=== PATIENT | male | born 1985 | race Caucasian/White ===

== ENCOUNTER 2022-01-05 11:11 | Inpatient (IN) | payer MEDICARE, OTHER ==
[~2022-01-05] VITALS: Ht 193 cm; Wt 152.0 kg
[2022-01-05 12:11] LABS: BASOPHILS ABSOLUTE AUTO 0.06 K/mm3 (0.00-0.23); BASOPHILS PERCENT AUTO 1 % (0-2); EOSINOPHILS ABSOLUTE AUTO 0.18 K/mm3 (0.00-0.68); EOSINOPHILS PERCENT AUTO 2 % (0-6); Hemoglobin 15.3 g/dL (13.5-17.5); IMMATURE GRAN ABSOLUTE AUTO 0.04 K/mm3 (0.00-0.10); IMMATURE GRAN PERCENT AUTO 0 % (0-1); LYMPHOCYTES ABSOLUTE AUTO 3.08 K/mm3 (0.84-5.20); LYMPHOCYTES PERCENT AUTO 26 % (21-46); MONOCYTES PERCENT AUTO 5 % (4-13); Mean Corpuscular HGB Conc 31.9 g/dL (31.5-36.5); Mean Corpuscular Volume 82 fL (80-100); Mean Platelet Volume 8.7 fL (9.1-12.4); NEUTROPHILS ABSOLUTE AUTO 7.82 K/mm3 (1.96-9.15); NEUTROPHILS PERCENT AUTO 67 % (41-73); Platelet Count 283 K/mm3 (150-400); RDW Coefficient Variation 13.8 % (11.7-14.2); RDW Standard Deviation 40.7 fL (35.1-46.3); Red Blood Cell Count 5.89 M/mm3 (4.30-5.90); White Blood Cell Count 11.78 K/mm3 (4.00-11.30)
[2022-01-05 12:12] LABS: Influenza A, PCR NEGATIVE (NEGATIVE); Influenza B, PCR NEGATIVE (NEGATIVE); Resp Syncytial Virus, PCR NEGATIVE (NEGATIVE); SARS-Cov-2 (COVID-19) PCR, MMC NEGATIVE (NEGATIVE)
[2022-01-05 12:38] LABS: Albumin, Blood 3.6 g/dL (3.4-5.0); Albumin/Globulin Ratio 0.9 (0.8-1.8); Bilirubin, Total 0.9 mg/dL (0.1-1.0); Bun/Creatinine Ratio 21.1 (12.0-20.0); Calcium, Blood 9.6 mg/dL (8.5-10.1); Creatinine, Blood 0.62 mg/dL (0.60-1.20); Globulin, Blood 4.2 g/dL (2.2-4.0); Potassium, Blood 4.3 mmol/L (3.5-5.5); Total Protein, Blood 7.8 g/dL (6.4-8.2)
[2022-01-05] MEDS ORDERED: METFORMIN HCL500 M2 PO (13:05)
[2022-01-05] MEDS ORDERED: HYDCHL25 PO (13:05)
[2022-01-05] MEDS ORDERED: ROSUVASTATIN CAL5 MG PO (13:05)
[2022-01-05] MEDS ORDERED: METOPROLOL TART25 MG (13:05)
--- NOTE | 2022-01-05 18:11 | NUR ---
SHIFT SUMMARY PT HAS BEEN RESTING IN ROOM SINCE ARRIVING. PT HAS BEEN PLEASANT AND COOPERATIVE. PT IS ALERT AND ORIENTED X4, THEY HAVE USED THE CALL LIGHT APPROPRIATELY FOR ASSISTANCE. PT HAS ASKED QUESTIONS ABOUT CURRENT ILLNESS AND IS RECEPTIVE TO EDUCATION. PT DENIES C/O PAIN OR DISCOMFORT, DENIES PRESENCE OF CHEST PAIN/PRESSURE. 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 PT STATED AN EASING OF SHORTNESS OF BREATH ATER DIURETICS WERE ADMINISTERED.
[2022-01-06 04:37] LABS: BASOPHILS ABSOLUTE AUTO 0.07 K/mm3 (0.00-0.23); BASOPHILS PERCENT AUTO 1 % (0-2); EOSINOPHILS ABSOLUTE AUTO 0.27 K/mm3 (0.00-0.68); EOSINOPHILS PERCENT AUTO 3 % (0-6); Hematocrit 44.1 % (37.0-53.0); Hemoglobin 14.3 g/dL (13.5-17.5); IMMATURE GRAN ABSOLUTE AUTO 0.03 K/mm3 (0.00-0.10); IMMATURE GRAN PERCENT AUTO 0 % (0-1); LYMPHOCYTES ABSOLUTE AUTO 3.88 K/mm3 (0.84-5.20); LYMPHOCYTES PERCENT AUTO 36 % (21-46); MONOCYTES ABSOLUTE AUTO 0.61 K/mm3 (0.16-1.47); MONOCYTES PERCENT AUTO 6 % (4-13); Mean Corpuscular HGB 25.9 pg (26.0-34.0); Mean Corpuscular HGB Conc 32.4 g/dL (31.5-36.5); Mean Corpuscular Volume 80 fL (80-100); Mean Platelet Volume 8.6 fL (9.1-12.4); NEUTROPHILS ABSOLUTE AUTO 6.03 K/mm3 (1.96-9.15); NEUTROPHILS PERCENT AUTO 55 % (41-73); Platelet Count 285 K/mm3 (150-400); RDW Coefficient Variation 13.9 % (11.7-14.2); RDW Standard Deviation 40.1 fL (35.1-46.3); Red Blood Cell Count 5.53 M/mm3 (4.30-5.90); White Blood Cell Count 10.89 K/mm3 (4.00-11.30)
[2022-01-06 05:25] LABS: Alanine Aminotransfer (ALT/SGP 19 U/L (12-78); Albumin, Blood 3.4 g/dL (3.4-5.0); Albumin/Globulin Ratio 0.9 (0.8-1.8); Alk Phos 81 U/L (50-136); Anion Gap 9 mmol/L (6-16); Aspartate Aminotrans (AST/SGOT 20 U/L (12-37); Bilirubin, Total 1.1 mg/dL (0.1-1.0); Blood Urea Nitrogen 12 mg/dL (8-24); Bun/Creatinine Ratio 20.7 (12.0-20.0); CHOL/HDL RATIO 3.3; CO2, Blood 25 mmol/L (21-32); Calcium, Blood 9.3 mg/dL (8.5-10.1); Chloride, Blood 103 mmol/L (98-108); Cholesterol 127 mg/dL (50-200); Creatinine, Blood 0.58 mg/dL (0.60-1.20); Globulin, Blood 3.6 g/dL (2.2-4.0); Glomerular Filtration Rate 130 (60-); Glucose, Blood 229 mg/dL (70-99); HDL Cholesterol 39 mg/dL (>39); LDL/HDL RATIO 1.6; Low Density Lipoprotein Chol 61 mg/dL (0-110); Magnesium, Blood 1.5 mg/dL (1.6-2.4); Potassium, Blood 3.7 mmol/L (3.5-5.5); Sodium, Blood 137 mmol/L (136-145); Triglycerides 137 mg/dL (30-140); Very Low Density Lipoprot Chol 27 mg/dL (6-28)
--- NOTE | 2022-01-06 06:15 | NUR ---
SHIFT SUMMARY NO ACUTE CHANGES THIS SHIFT. PT A&OX4, SP02>90% ON RA, PT ABLE TO SLEEP LAYING FLAT W/O SOB. VSS. PT STAYED W/IN FLUID RESTRICTION LIMITS. FASTING FOR CORONARY RISK PANEL DURING NOC. USED URINAL MULTIPLE TIMES DURING NOC. NO BM THIS SHIFT. SLEPT MOST OF NIGHT. CALL LIGHT IN REACH.
--- NOTE | 2022-01-06 10:46 | NUR ---
AM NOTE: PATIENT ALERT AND ORIENTED X4. PERRLA. HISTORY OF [facility], USING WHEELCHAIR AT BASELINE AND OUTPATIENT PT. ABLE TO TURN AND MOVE SELF IN BED. ON ROOM AIR SATING ABOVE 94%. DENIES COUGH. SOB WITH MOVEMENT IN BED. TELE SHOWING SINUS TACH WITH HR LOW 100'S. BP STABLE. DENIES CHEST PAIN/PRESSURE. ECHO COMPLETED THIS AM. IRRITATION TO CHEST FROM TELE STICKERS. DENIES ABDOMINAL PAIN/NAUSEA. USING URINAL. ON FLUID RESTRICTION. ACHS BLOOD SUGARS. SCATTERED BRUISING AND SCABS. IV MAG REPLACED THIS AM. CALL LIGHT IN REACH. DENIES NEEDS AT THIS TIME. WILL CONTINUE TO MONITOR.
--- NOTE | 2022-01-06 17:39 | NUR ---
SHIFT SUMMARY: NO ACUTE CHANGES. PATIENT REMAINS ALERT AND ORIENTED X4. NO CHANGES TO NEURO. ABLE TO TURN AND MOVE SELF AROUND IN BED. REMAINS ON ROOM AIR. SOB WITH MOVEMENT AND EVEN EATING. PATIENT ABLE TO LAY FLAT ON SIDE TO SLEEP THIS AFTERNOON. NO CHANGES TO TELE. REMAINS SINUS TACH LOW 100'S. DENIES CHEST PAIN/PRESSURE. USING URINAL TO VOID. FLUID RESTRICTION MAINTAINED. MAG REPLACED THIS AM. DENIES NEEDS AT THIS TIME. EATING DINNER. WILL CONTINUE TO MONITOR AND REPORT OFF TO ONCOMING RN.
[2022-01-07 04:59] LABS: Calcium, Blood 9.4 mg/dL (8.5-10.1); Creatinine, Blood 0.81 mg/dL (0.60-1.20); Potassium, Blood 3.8 mmol/L (3.5-5.5)
--- NOTE | 2022-01-07 05:46 | NUR ---
SHIFT SUMMARY PT ALERT, UP ALOT OF THE NIGHT UNABLE TO SLEEP. SP02>90% ON RA, SOB WHEN LAYING FLAT. C/O OF PRODUCTIVE COUGH OF THICK SPUTUM. VSS. PT DENIED PAIN. C/O OF NAUSEA THAT WHEN AWAY WITH SNACKS. C/O OF CONSTIPATION, PRUNE JUICE HELPED, UP TO BATHROOM W/ SBA AND FWW. CALL LIGHT IN REACH.
--- NOTE | 2022-01-07 07:20 | NUR ---
Initial Assessment: Patient is awake sitting up on the edge of the bed. He is alert and oriented. Denies pain at this time. HRR, ST in the low 100s with some PVCs. He denies CP or SOB at this time. Biox 100% on RA, LS CTA. BT+. Pt states he is constipated but this is a chronic issue, he states he did have a BM after some prune juice last night but still feels like he needs to go. He also c/o a sour stomach. RPP. Left BKA. 1+ non pitting edema noted to BLE. VSS. Patient denies other needs at this time. Call light in reach.
[2022-01-07] MEDS ORDERED: CARV3.125 PO (09:03)
[2022-01-07] MEDS ORDERED: FURO40 PO (09:04)
[2022-01-07] MEDS ORDERED: LOSA50 PO (09:04)
[2022-01-07] MEDS ORDERED: ASPI81CH PO (09:05)
[2022-01-07] MEDS ORDERED: SPIR25 PO (09:05)
--- NOTE | 2022-01-07 09:30 | NUR ---
Update: Dr. Garvey has been to see the patient, plans for discharge this AM. He will follow up with cardiology as an outpatient. Dietary plans to come and see the patient to review fluid restriction. Patient denies other needs at this time.
--- NOTE | 2022-01-07 11:13 | NUR ---
Discharge: Dietary came and presented education on diabetes, congestive heart failure, and fluid restriction. This RN reviewed medciations, daily weights, checking blood pressures, and dietary restrictions. Patient and sister verbalize understanding of discharge instructions. Patient to home via WC with sister.
== END 2022-01-07 11:15 | disposition home or self-care (01) | DRG 291 ==
LOC: ER 11:11 → PCU 15:14
PROVIDERS: Hospitalist; Physician Assistant; ADMIT Internal Medicine
DX: I11.0 Hypertensive heart disease with heart failure (principal); I50.23 Acute on chronic systolic (congestive) heart failure; R18.8 Other ascites; I42.9 Cardiomyopathy, unspecified; E78.5 Hyperlipidemia, unspecified; J06.9 Acute upper respiratory infection, unspecified; K21.9 Gastro-esophageal reflux disease without esophagitis; E87.70 Fluid overload, unspecified; E11.65 Type 2 diabetes mellitus with hyperglycemia; Z20.822 Contact with and (suspected) exposure to COVID-19; E66.01 Morbid (severe) obesity due to excess calories; M14.60 Charcot's joint, unspecified site; D72.829 Elevated white blood cell count, unspecified; R06.00 Dyspnea, unspecified; E83.42 Hypomagnesemia; Z79.899 Other long term (current) drug therapy; Z79.84 Long term (current) use of oral hypoglycemic drugs; Z89.612 Acquired absence of left leg above knee; Z86.14 Personal history of Methicillin resistant Staphylococcus aureus infection; Z68.38 Body mass index [BMI] 38.0-38.9, adult
CPT/HCPCS: 0241U; 36415; 71046; 71260; 74177; 80048; 80053; 80061; 82947; 83036; 83735; 83880; 84443; 84484; 85025; 85379; 93005; 93010; 96374-59; 96375-59; 99285-25; A9270; C8929; J1650; J1815; J1940; J3475; J7030; Q9957; Q9967

== ENCOUNTER 2022-07-02 08:30 | Day surgery (SDC) | payer MEDICARE, OTHER ==
[~2022-07-02] VITALS: Ht 193 cm; Wt 98.0 kg
[~2022-07-02 08:30] MED LIST: ASPI81CH PO; CARV3.125 PO; FARXIGA10 MG PO; FURO40 PO; GLIP5ER PO; HYDCHL25 PO; LOSA50 PO; METFORMIN HCL500 M2 PO; METOPROLOL TART25 MG; ROSUVASTATIN CAL5 MG PO; SPIR25 PO
[2022-07-02 09:01] LABS: BASOPHILS ABSOLUTE AUTO 0.06 K/mm3 (0.00-0.23); BASOPHILS PERCENT AUTO 1 % (0-2); EOSINOPHILS ABSOLUTE AUTO 0.25 K/mm3 (0.00-0.68); EOSINOPHILS PERCENT AUTO 2 % (0-6); Hematocrit 46.7 % (37.0-53.0); Hemoglobin 15.9 g/dL (13.5-17.5); IMMATURE GRAN ABSOLUTE AUTO 0.04 K/mm3 (0.00-0.10); IMMATURE GRAN PERCENT AUTO 0 % (0-1); LYMPHOCYTES ABSOLUTE AUTO 2.89 K/mm3 (0.84-5.20); LYMPHOCYTES PERCENT AUTO 27 % (21-46); MONOCYTES ABSOLUTE AUTO 0.47 K/mm3 (0.16-1.47); MONOCYTES PERCENT AUTO 4 % (4-13); Mean Corpuscular HGB 27.2 pg (26.0-34.0); Mean Corpuscular Volume 80 fL (80-100); Mean Platelet Volume 8.3 fL (9.1-12.4); NEUTROPHILS ABSOLUTE AUTO 6.96 K/mm3 (1.96-9.15); NEUTROPHILS PERCENT AUTO 65 % (41-73); Platelet Count 276 K/mm3 (150-400); RDW Coefficient Variation 14.3 % (11.7-14.2); RDW Standard Deviation 41.1 fL (35.1-46.3); Red Blood Cell Count 5.85 M/mm3 (4.30-5.90); White Blood Cell Count 10.67 K/mm3 (4.00-11.30)
[2022-07-02 09:17] LABS: Bun/Creatinine Ratio 19.1 (12.0-20.0); Calcium, Blood 9.4 mg/dL (8.5-10.1); Creatinine, Blood 0.58 mg/dL (0.60-1.20); International Normalized Ratio 1.02; Potassium, Blood 4.2 mmol/L (3.5-5.5); Prothrombin Time Results 10.7 Sec (9.7-11.5)
--- NOTE | 2022-07-02 13:54 | NUR ---
PT BP ELEVATED 133/116. DR NOTIFIED AND ORDER RECEVIED FOR CARVEDILOL 12.5 MG PO, GIVEN.
--- NOTE | 2022-07-02 15:45 | NUR ---
PT BP HAS COME DOWN TO 107/74. TR BAND REMOVED AND CLOTH DOT PLACED. SALINE LOCK REMOVED WITH CATHETER INTACT. ARM BOARD PLACED TO R ARM. SITE STABLE. DISCHARGE REVIEWED WITH PT, VERBALIZES UNDERSTANDING OF INSTRUCTIONS. PT DISCHARGE PER W/C WITH ONE STAFF TO PRIVATE VEHICLE.
== END 2022-07-02 16:00 | disposition home or self-care (01) ==
LOC: MHTC 08:30
PROVIDERS: Internal Medicine Interventional Cardiology
DX: I42.0 Dilated cardiomyopathy (principal); I50.9 Heart failure, unspecified; R06.02 Shortness of breath; Q87.3 Congenital malformation syndromes involving early overgrowth; G62.9 Polyneuropathy, unspecified; I11.0 Hypertensive heart disease with heart failure; E11.9 Type 2 diabetes mellitus without complications; E66.9 Obesity, unspecified; Z68.26 Body mass index [BMI] 26.0-26.9, adult
CPT/HCPCS: 76937; 80048; 85025; 85610; 93458; 99152; 99153; A9270; C1769; C1887; C1894; J1644; J2250; J3010; J7030; J7050; Q9967